=== PATIENT | female | born 1970 | race Caucasian/White ===

== ENCOUNTER 2016-10-17 14:12 | Observation (INO) | payer BC ==
--- OUTSIDE RECORDS SUMMARY | 2016-10-17 15:52 | XMS REPORT | Summary of Care ---
:1970 Author Organization [facility] Address [address] [place] [address] Care Team Providers Name Role Phone Physician, Primary Care Primary Care Physician Unavailable Encounter Date(s): 07/29/16 - 07/29/16 [facility] [place] [address] [place], [place] [address] Discharge Diagnosis: Diabetic neuropathy Discharge Diagnosis: Left leg pain Discharge Diagnosis: Lumbar spinal stenosis Discharge Diagnosis: Lumbar degenerative disc disease Discharge Disposition: 01 Discharged to Home or Self Care Attending Physician: Steve Vallejo NP Referring Physician: Irwin Woodall MD Vital Signs Most recent to oldest [Reference Range]: 1 Peripheral Pulse Rate [60-100 bpm] 76 bpm (07/29/16 9:51 AM) Blood Pressure [90-130/60-90 mmHg] 120/82mmHg (07/29/16 9:51 AM) Mean Arterial Pressure, Cuff 95 mmHg (07/29/16 9:51 AM) Most recent to oldest [Reference Range]: 1 Height/Length Measured 162 cm (07/29/16 9:51 AM) Weight Dosing 101.00 kg1 (07/29/16 10:05 AM) Weight Measured 101 kg (07/29/16 9:51 AM) BSA Measured 2.04 m2 (07/29/16 9:51 AM) Body Mass Index Measured 38.48 kg/m2 (07/29/16 9:51 AM) 1Result Comment: This result was because the dosing weight was either not entered or it is>30 days old. This result is based off: Weight Measured July 29, 2016 09:51:00 FEED ADVISER by Lamin [employer]ing [employer] Problem List Condition Effective Dates Status Health Status Informant Anxiety(Confirmed) Active Depression(Confirmed) Active Diabetic neuropathy(Confirmed) Active DM - Diabetes mellitus Type Active 2(Confirmed) Ectopic (Confirmed) Active GERD - Gastro-esophageal reflux Active disease(Confirmed) Hyperlipidemia(Confirmed) Active Hypertension(Confirmed) Active Lactose intolerance(Confirmed) Active Lumbago(Confirmed) Active Obesity(Confirmed) Active Proteinuria(Confirmed) Active Allergies, Adverse Reactions, Alerts Substance Reaction Severity Status exenatide GI upset Active gemfibrozil GI upset Active oxyCODONE Agitation Active Medications aspirin 81 mg oral tablet 1 tab(s), Oral, Daily, 0 Refill(s) Start Date: 10/30/13 Stop Date: 10/30/13 Status: CompletedBactrim DS 800 mg-160 mg oral tablet 1 tab(s), Oral, BID, X 6 days, # 12 tab(s), 0 Refill(s), Start Date: 05/07/15 14 :52:00 FEED ADVISER Start Date: 05/07/15 Stop Date: 05/13/15 Status: Completedclindamycin 300 mg oral capsule 1 cap(s), Oral, TID, X 14 days, # 42 cap(s), 0 Refill(s), Start Date: 03/28/16 11:15:00 CDT, Pharmacy: [place], [place] Start Date: 03/28/16 Stop Date: 04/07/16 Status: Completedclindamycin 300 mg oral capsule 1 cap(s), Oral, TID, # 21 cap(s), 0 Refill(s), Start Date: 04/07/16 14:19:04 CDT , [facility] [place] Start Date: 04/07/16 Stop Date: 04/14/16 Status: OrderedDME - Sling See Instructions, Diagnosis Code: S46.312A Length of Need:3 mo, # 1 EA, 0 Refill(s), 03/10/16 15:04:00 CDT, Supply Special Instructions: Diagnosis Code: S46.312A Length of Need:3 mo Start Date: 03/10/16 Status: Orderedfenofibrate 160 mg oral tablet 1 tab(s), Oral, Daily, 0 Refill(s) Start Date: 10/30/13 Stop Date: 10/30/13 Status: Completedgabapentin 300 mg oral capsule 3 cap(s), Oral, TID, 0 Refill(s) Start Date: 10/30/13 Stop Date: 03/23/16 Status: Completedglimepiride 2 mg oral tablet 1 tab(s), Oral, Daily, 0 Refill(s) Start Date: 10/30/13 Stop Date: 03/26/16 Status: Discontinuedglimepiride 4 mg oral tablet 1 tab(s), Oral, Daily, # 30 tab(s), 0 Refill(s), Start Date: 07/29/16 10:00:00 FEED ADVISER Start Date: 07/29/16 Status: OrderedHumaLOG 100 units/mL subcutaneous solution inject 10 units by subcutaneous route 3 times every day within 15 minutes before meals, 0 Refill(s) Special Instructions: inject 10 units by subcutaneous route 3 times every day within 15 minutes before meals Start Date: 10/30/13 Stop Date: 10/30/13 Status: CompletedhydroCHLOROthiazide 12.5 mg oral capsule 1 cap(s), Oral, Daily, # 30 cap(s), 0 Refill(s), Start Date: 03/26/16 10:58:00 CDT, Pharmacy: [place], [place] Start Date: 03/26/16 Stop Date: 04/25/16 Status: OrderedHYDROcodone-acetaminophen 5 mg-325 mg oral tablet 1-2 tab(s), Oral, q6hr interval, # 12 tab(s), 0 Refill(s), Start Date: 05/07/15 14:52:00 FEED ADVISER Start Date: 05/07/15 Stop Date: 05/08/15 Status: CompletedHYDROcodone-acetaminophen 5 mg-325 mg oral tablet 1 tab(s), Oral, q4hr, PRN for pain, 0 Refill(s) Start Date: 10/30/13 Stop Date: 03/23/16 Status: Completedinsulin isophane (NPH) 100 units/mL human recombinant subcutaneous suspension 15 units, Subcutaneous, BIDMEALS, # 10 mL, 0 Refill(s), Start Date: 03/26/16 10: 58:00 CDT Start Date: 03/26/16 Stop Date: 04/25/16 Status: Orderedinsulin needles (disposable) 29 x 11/01" insulin needles (disposable) 29 x 516", use as directed to inject insulin 5 times a day, 0 Refill(s) Special Instructions: use as directed to inject insulin 5 times a day Start Date: 10/30/13 Stop Date: 10/30/13 Status: CompletedInsulin Syringe 1/2 mL 29 X 5/16" Insulin Syringe 1/2 mL 29 X 5/16", use daily for insulin injection, or as directed, 0 Refill(s) Special Instructions: use daily for insulin injection, or as directed Start Date: 10/30/13 Stop Date: 10/30/13 Status: CompletedKeflex 500 mg oral capsule 1 cap(s), Oral, QID, # 56 cap(s), 0 Refill(s), Start Date: 03/25/16 17:45:00 CDT , Pharmacy: [place], [place] Start Date: 03/25/16 Stop Date: 04/08/16 Status: OrderedKeflex 500 mg oral capsule 1 cap(s), Oral, QID, # 40 cap(s), 0 Refill(s), Start Date: 03/10/16 15:02:00 CDT , Pharmacy: [place], [place] Start Date: 03/10/16 Stop Date: 03/23/16 Status: CompletedLantus Solostar Pen 100 units/mL subcutaneous solution inject 40 units by subcutaneous route 2 times every day, 0 Refill(s) Special Instructions: inject 40 units by subcutaneous route 2 times every day Start Date: 10/30/13 Stop Date: 10/30/13 Status: Completedlisinopril 2.5 mg oral tablet 1 tab(s), Oral, Daily, 0 Refill(s) Start Date: 10/30/13 Stop Date: 03/26/16 Status: Discontinuedlisinopril 20 mg oral tablet 1 tab(s), Oral, Daily, # 30 tab(s), 0 Refill(s), Start Date: 03/26/16 10:57:00 CDT, Pharmacy: [place], [place] Start Date: 03/26/16 Stop Date: 04/25/16 Status: Orderedlisinopril 20 mg oral tablet 1 tab(s), Oral, Daily, 0 Refill(s) Start Date: 10/30/13 Stop Date: 10/30/13 Status: CompletedmetFORMIN 1000 mg oral tablet 1 tab(s), Oral, BID, # 60 tab(s), 0 Refill(s), Start Date: 03/26/16 10:58:00 CDT , Pharmacy: [place], [place] Start Date: 03/26/16 Stop Date: 04/25/16 Status: OrderedmetFORMIN 1000 mg oral tablet 1 tab(s), Oral, BID, with morning and evening meals, 0 Refill(s) Special Instructions: with morning and evening meals Start Date: 10/30/13 Stop Date: 10/30/13 Status: CompletedmetFORMIN 500 mg oral tablet 1 tab(s), Oral, BID, 0 Refill(s) Start Date: 10/30/13 Stop Date: 03/26/16 Status: DiscontinuedNorco 5 mg-325 mg oral tablet See Instructions, tab(s) 1-2 tab(s) Oral q4-6hr prn pain, # 60 tab(s), 0 Refill( s), Start Date: 03/25/16 16:06:47 CDT, Pharmacy: [place], [place] Special Instructions: tab(s) 1-2 tab(s) Oral q4-6hr prn pain Start Date: 03/25/16 Status: OrderedNorco 5 mg-325 mg oral tablet See Instructions, tab(s) 1-2 tab(s) Oral q4-6hr prn pain, # 60 tab(s), 0 Refill( s), Start Date: 03/10/16 15:06:00 CDT, Pharmacy: [place], [place] Special Instructions: tab(s) 1-2 tab(s) Oral q4-6hr prn pain Start Date: 03/10/16 Stop Date: 03/25/16 Status: CompletedNovoLOG FlexPen 100 units/mL subcutaneous solution 15 units, Subcutaneous, TIDAC, 1 box=5 [id number] units, # 30 mL, 0 Refill(s), Start Date: 03/26/16 11:00:00 CDT Special Instructions: 1 box=5 [id number] units Start Date: 03/26/16 Stop Date: 04/25/16 Status: OrderedNPH insulin human recomb 100 unit/mL Susp, Sub-Q Inj NPH insulin human recomb 100 unit/mL Susp, Sub-Q Inj, inject 25 units by subcutaneous route twice daily, 0 Refill(s) Special Instructions: inject 25 units by subcutaneous route twice daily Start Date: 10/30/13 Stop Date: 10/30/13 Status: Completedomeprazole 20 mg oral delayed release capsule 1 cap(s), Oral, Daily, before a meal, 0 Refill(s) Special Instructions: before a meal Start Date: 10/30/13 Status: OrderedOne Touch Ultra Test Strips One Touch Ultra Test Strips, place 1 Strip by In Vitro route 3 times every day for fingersticks monitoring as directed, 0 Refill(s) Special Instructions: place 1 Strip by In Vitro route 3 times every day for fingersticks monitoring as directed Start Date: 10/30/13 Stop Date: 10/30/13 Status: CompletedPen Needle 31 X 5/16" Pen Needle 31 X 5/16", use 1 needle by Injection route 8 times a day as directed for insulin and byetta administration, 0 Refill(s) Special Instructions: use 1 needle by Injection route 8 times a day as directed for insulin and byetta administration Start Date: 10/30/13 Stop Date: 10/30/13 Status: Completedsimvastatin 40 mg oral tablet 1 tab(s), Oral, HS, 0 Refill(s) Start Date: 10/30/13 Stop Date: 10/30/13 Status: Completedsimvastatin 40 mg oral tablet 1 tab(s), Oral, HS, # 30 tab(s), 0 Refill(s), Start Date: 03/26/16 10:58:00 CDT , [facility] [place] Start Date: 03/26/16 Stop Date: 04/25/16 Status: OrderedtraMADol 50 mg oral tablet 1 tab(s), Oral, q8hr interval, 0 Refill(s) Start Date: 10/30/13 Stop Date: 03/23/16 Status: CompletedUnifine Pentips 29 gauge Needle Unifine Pentips 29 gauge Needle, use as directed to inject insulin 5 times daily , 0 Refill(s) Special Instructions: use as directed to inject insulin 5 times daily Start Date: 10/30/13 Stop Date: 10/30/13 Status: CompletedXanax 0.25 mg oral tablet 1 tab(s), Oral, HS, 0 Refill(s) Start Date: 10/30/13 Stop Date: 10/30/13 Status: Completed Results No data available for this section Immunizations No data available for this section Procedures Procedure Date Related Diagnosis Body Site Repair Tendon Bicep (Left, Arm L)1 03/25/16 Exploratory laparotomy2 Operative procedure on foot or toes Operative procedure on spine3 1auto-populated from documented surgical [id number] for ectopic [id number] [id number]-Ushroc Social History No data available for this section Assessment and Plan No data available for this section
[2016-10-17] MEDS ORDERED: ACETAMINOPHEN 325 MG TABLET PO PRN (16:09)
[2016-10-17 16:23] LABS: Hematocrit 36.8 % (37.0-47.0); Hemoglobin 11.9 gm/dL (12.5-16.0); Mean Cell Volume 92.5 fl (78-100); Mean Corpuscular Hemoglobin 29.9 pg (27-31); Mean Corpuscular Hgb Conc 32.3 g/dl (32-36); Mean Platelet Volume 11.1 fl (6.0-9.5); Neutrophil # 6.3 K/mm3 (1.3-6.0); Neutrophil % 72.1 % (42-75.0); Platelet Count 197 K/mm3 (150-450); Red Blood Count 3.98 M/mm3 (4.2-5.4); White Blood Count 8.7 K/mm3 (4.0-10.5)
[2016-10-17] MEDS ORDERED: ENOXAPARIN SODIUM 40 MG/0.4 ML SYRG SC SCH (16:30)
[2016-10-17 16:38] LABS: INR 0.96 INR (0.90-1.10); Partial Thrombolplastin Time 24.5 Seconds (24-32)
[2016-10-17 16:43] LABS: Troponin I Less than 0.017 ng/ml (0.00-0.10)
[2016-10-17 16:45] LABS: ALT 32 U/L (19-67); AST 15 U/L (0-48); Albumin * 3.2 gm/dl (3.4-5.0); Alkaline Phosphatase * 66 U/L (50-170); BNP * 70 pg/mL (5-150); BUN/Creatinine Ratio 16.3 (9.0-21.6); Bilirubin, Total 0.4 mg/dL (0.0-1.1); Blood Urea Nitrogen 24 mg/dL (3-23); Ca. Corrected For Albumin 9.8 mg/dL (8.4-10.2); Calcium * 9.5 mg/dL (7.9-10.9); Carbon Dioxide 24.3 mmol/L (24-32.6); Chloride 101 mmol/L (97-106); Glucose * 422 mg/dL (70-110); Potassium 4.3 mmol/L (3.4-4.6); Sodium 136 mmol/L (132-142); Total Protein 7.2 gm/dL (6.2-8.2)
[2016-10-17] MEDS ORDERED: SULINDAC 200 MG PO PRN (18:25)
[2016-10-17] MEDS ORDERED: traMADol HCL 50 MG TABLET PO PRN (18:25)
--- NOTE | 2016-10-17 18:37 | HP ---
Chief Complaint - Chief Complaint Date of Service: 10/17/16 Time of Service: 14:00 Chief Complaint: Right leg pain, redness, and sob with chest pain History of Present Illness: 2 days ago this 46 year old woman developed redness, pain, swelling, tenderness , and heat in her distal right lower leg. She has had problems with a chronic callus on her distal right great toe. In addition, she developed sob with slight chest pain on exertion 2 days ago, which didn't wake her at night. No fever chills or sweats. No light headedness or passing out. No diaphoresis. No radiation. Walking made the pain in her right lower leg worse. She does have diabetes. - Patient's Past Medical History Patient History - Medical: Chronic Pain, Diabetes Type 2 Patient History - Cardiac/Respiratory: Hypertension Patient History - Cancer: No Hx of Cancer LMP (Calendar): 10/18/87 - Family History Mother Family History - Medical: , Diabetes Type 2 Family History - Cancer: Lung Sister Family History - Medical: Family History - Cancer: Brain - Social History Living Situations: spouse Psych History: No pertinent hx Smoking Status: Never smoker Have you smoked in the past 12 months: No Do you dip or chew tobacco: No Patient requests Smoking Cessation Consult: No Initiate information on Smoking Cessation: No Alcohol Use: none Drug Use: none Review Of Systems (GEN) - Review of Systems Generalized/Overall Review: Present: No Symptoms Reported EENTM: Present: No Symptoms Reported Respiratory: Present: Shortness of Breath Cardiac: Present: Chest Pain, Edema Abdominal: Present: No Symptoms Reported Genitourinary: Present: No Symptoms Reported Musculoskeletal: Present: No Symptoms Reported Neurological: Present: No Symptoms Reported Skin: Present: Other - see HPI Endocrine: Present: No Symptoms Reported Misc: All systems neg except as marked Home Medications: HOME MEDICATIONS Aspirin [Aspirin EC] 81 mg PO DAILY 10/17/16 [Last Taken Unknown] Fenofibrate 160 mg PO DAILY 10/17/16 [Last Taken Unknown] Gabapentin 800 mg PO QID 10/17/16 [Last Taken Unknown] Glimepiride [Amaryl] 4 mg PO BID@0700,1700 10/17/16 [Last Taken Unknown] Lisinopril/Hydrochlorothiazide [Lisinopril-Hctz 20-12.5 mg Tab] 1 each PO DAILY 10/17/16 [Last Taken Unknown] Omeprazole 20 mg PO DAILY 10/17/16 [Last Taken Unknown] Pioglitazone HCl [Actos] 45 mg PO DAILY 10/17/16 [Last Taken Unknown] Simvastatin [Zocor] 40 mg PO HS 10/17/16 [Last Taken Unknown] Sulindac 200 mg PO BID PRN 10/17/16 [Last Taken Unknown] metFORMIN HCL [Glucophage] 1,000 mg PO BIDWM 10/17/16 [Last Taken Unknown] traMADol HCL [Ultram] 100 mg PO Q6H PRN 10/17/16 [Last Taken Unknown] Exam - Exam Vital Signs: Vital Signs - Last Taken 10/17/2016 01:43 PM 120/78 Sitting P-112 R- 16 T -36.4 W - 105.5 H - 165 BMI - 38.75 O2 SAT RA - 99 % Constitutional: Present: Alert, Oriented x3, Cooperative, Well developed, No distress, Obese ENT Exam: Present: normal ENT inspection, hearing grossly normal, pharynx normal , TMs normal Eye Exam: bilateral eye: normal inspection, PERRL, EOMI Neck: Present: normal inspection Back Exam: Present: normal inspection Respiratory: Present: lungs clear, no respiratory distress Cardiovascular/Chest: Present: regular rate, rhythm, no murmur Abdomen: Present: Normal bowel sounds, soft, nontender, nondistended, no rebound tenderness, no hepatospenomegaly, no masses, obese Extremity: Present: pedal edema, swelling, other - distal right lower leg and foot red and tender with chronic callous distal right great toe Lymphatic: Present: no adenopathy Neurologic: Present: alert, oriented x 3 Appearance: Present: appropriate appearance, neat, no memory impairment Eye contact: Present: cooperative, good eye contact, normal speech Thoughts: Present: normal thought pattern Diagnostic Studies: Abnormal Lab Results 10/17/16 10/17/16 Range/Units 16:19 16:19 RBC 3.98 L (4.2-5.4) M/mm3 Hgb 11.9 L (12.5-16.0) gm/dL Hct 36.8 L (37.0-47.0) % MPV 11.1 H (6.0-9.5) fl Immature Gran % (Auto) 0.60 H (0.001-0.429) % Immature Gran # (Auto) 0.05 H (0.000-0.0310) K/mm3 Lymphocytes % 17.7 L (20-51) % Neutrophils # 6.3 H (1.3-6.0) K/mm3 Anion Gap 15.0 H (6.8-13.8) mmol/L BUN 24 H (3-23) mg/dL Creatinine 1.47 H D (0.4-1.4) mg/dL Est GFR (Non-Af Amer) 40 L D (60-130) mL/min Random Glucose 422 H (70-110) mg/dL Albumin 3.2 L (3.4-5.0) gm/dl Laboratory Results WBC 8.7 K/mm3 (4.0-10.5) 10/17/16 16:19 RBC 3.98 M/mm3 (4.2-5.4) L 10/17/16 16:19 Hgb 11.9 gm/dL (12.5-16.0) L 10/17/16 16:19 Hct 36.8 % (37.0-47.0) L 10/17/16 16:19 MCV 92.5 fl (78-100) 10/17/16 16:19 MCH 29.9 pg (27-31) 10/17/16 16:19 MCHC 32.3 g/dl (32-36) 10/17/16 16:19 RDW 14.0 % (11.5-14.0) 10/17/16 16:19 Plt Count 197 K/mm3 (150-450) 10/17/16 16:19 MPV 11.1 fl (6.0-9.5) H 10/17/16 16:19 Immature Gran % (Auto) 0.60 % (0.001-0.429) H 10/17/16 16:19 Immature Gran # (Auto) 0.05 K/mm3 (0.000-0.0310) H 10/17/16 16:19 Neutrophils % 72.1 % (42-75.0) 10/17/16 16:19 Lymphocytes % 17.7 % (20-51) L 10/17/16 16:19 Monocytes % 7.7 % (0.0-9) 10/17/16 16:19 Eosinophils % 1.8 % (0.0-3.0) 10/17/16 16:19 Basophils % 0.1 % (0.0-1.0) 10/17/16 16:19 Nucleated RBC % 0.0 k/mm3 (0-1) 10/17/16 16:19 Neutrophils # 6.3 K/mm3 (1.3-6.0) H 10/17/16 16:19 Lymphocytes # 1.5 k/mm3 (1.5-3.5) 10/17/16 16:19 Monocytes # 0.7 k/mm3 (0.0-1.0) 10/17/16 16:19 Eosinophils # 0.2 k/mm3 (0.0-0.7) 10/17/16 16:19 Absolute Basophils 0.0 k/mm3 (0.0-0.1) 10/17/16 16:19 PT 10.0 Seconds (9.4-11.4) 10/17/16 16:19 INR (Anticoag Therapy) 0.96 INR (0.90-1.10) 10/17/16 16:19 PTT ([place]) 24.5 Seconds (24-32) 10/17/16 16:19 Sodium 136 mmol/L (132-142) 10/17/16 16:19 Plasma Sodium 141 mmol/L (130-142) 10/17/16 16:19 Potassium 4.3 mmol/L (3.4-4.6) 10/17/16 16:19 Chloride 101 mmol/L (97-106) 10/17/16 16:19 Carbon Dioxide 24.3 mmol/L (24-32.6) 10/17/16 16:19 Anion Gap 15.0 mmol/L (6.8-13.8) H 10/17/16 16:19 BUN 24 mg/dL (3-23) H 10/17/16 16:19 Creatinine 1.47 mg/dL (0.4-1.4) H D 10/17/16 16:19 Est GFR (Non-Af Amer) 40 mL/min (60-130) L D 10/17/16 16:19 BUN/Creatinine Ratio 16.3 (9.0-21.6) 10/17/16 16:19 Random Glucose 422 mg/dL (70-110) H 10/17/16 16:19 Calcium 9.5 mg/dL (7.9-10.9) 10/17/16 16:19 Calcium Adj for Albumin 9.8 mg/dL (8.4-10.2) 10/17/16 16:19 Total Bilirubin 0.4 mg/dL (0.0-1.1) 10/17/16 16:19 AST 15 U/L (0-48) 10/17/16 16:19 ALT 32 U/L (19-67) 10/17/16 16:19 Alkaline Phosphatase 66 U/L (50-170) 10/17/16 16:19 Troponin I Less than 0.017 ng/ml (0.00-0.10) 10/17/16 16:19 B-Natriuretic Peptide 70 pg/mL (5-150) 10/17/16 16:19 Total Protein 7.2 gm/dL (6.2-8.2) 10/17/16 16:19 Albumin 3.2 gm/dl (3.4-5.0) L 10/17/16 16:19 Assessment/Plan - Narrative Narrative: Labs including cultures. CXR. Ultrasound leg. Chest PE CT. IV antibiotics. Troponin. EKG. Other studies and treatment pending results and course. Estimate hospital stay of at least one midnight. - Assessment/Plan (1) Cellulitis Problem: Suspected Qualifiers: Site of cellulitis: extremity Site of cellulitis of extremity: lower extremity Laterality: right Qualified Code(s): L03.115 - Cellulitis of right lower limb (2) Phlebitis Problem: Suspected (3) Pulmonary embolism Problem: Suspected Qualifiers: Chronicity: unspecified Acute cor pulmonale presence: without acute cor pulmonale (4) Chest pain Problem: Acute Qualifiers: Chest pain type: chest pain due to myocardial ischemia Ischemic chest pain type: unstable angina pectoris Qualified Code(s): I20.0 - Unstable angina (5) Diabetes mellitus Problem: Chronic Qualifiers: Diabetes mellitus type: type 2
[2016-10-17] MEDS: NORMAL SALINE 1,000 ML IV PRN (19:48)
[2016-10-17] MEDS: GABAPENTIN 400 MG CAPSULE PO SCH (20:33)
[2016-10-17] MEDS ORDERED: SIMVASTATIN 40 MG TABLET PO SCH (21:00)
[2016-10-18] MEDS: NORMAL SALINE 1,000 ML IV PRN (03:55)
[2016-10-18 06:14] LABS: Anion Gap 17.2 mmol/L (6.8-13.8); BUN/Creatinine Ratio 21.2 (9.0-21.6); Calcium * 9.2 mg/dL (7.9-10.9); Estimated Creat Clear 57.1; Potassium 4.2 mmol/L (3.4-4.6)
[2016-10-18] MEDS ORDERED: PANTOPRAZOLE SODIUM 20 MG TABLET.DR PO SCH (07:00)
[2016-10-18] MEDS ORDERED: GLIMEPIRIDE 4 MG TABLET PO SCH (07:00)
[2016-10-18 07:32] VITALS: BP 110/67
--- NOTE | 2016-10-18 07:42 | DS ---
(1) Cellulitis Problem: Acute Qualifiers: Site of cellulitis: extremity Site of cellulitis of extremity: lower extremity Laterality: right Qualified Code(s): L03.115 - Cellulitis of right lower limb (2) Phlebitis Problem: Ruled-out (3) Pulmonary embolism Problem: Ruled-out Qualifiers: Chronicity: unspecified Acute cor pulmonale presence: without acute cor pulmonale (4) Chest pain Problem: Ruled-out Qualifiers: Chest pain type: chest pain due to myocardial ischemia Ischemic chest pain type: unstable angina pectoris Qualified Code(s): I20.0 - Unstable angina (5) Diabetes mellitus Problem: Chronic Qualifiers: Diabetes mellitus type: type 2 (6) Normochromic normocytic anemia Problem: Chronic (7) Hypernatremia Problem: Acute (8) Acute renal failure superimposed on stage 2 chronic kidney disease Problem: Acute Description of Stay: Following admission, cultures were obtained and Rocephin was started. Right lower leg looks better this morning. Ultrasound ruled out DVT of right leg. CT angiogram ruled out PE. CXR and EKG were non acute. Troponin was normal. Patient feels well. She will be sent home with outpatient antibiotics and followup. Procedures Performed: none Discharge Disposition: Home self care Disposition: Home self-care Condition: Good Discharge Activity: Activity as tolerated - rest with leg elevated Discharge Diet: Consistent carbs, Low salt Referrals: Irwin Oliveira MD [Primary Care Provider] - Problem Oriented Discharge Instructions to Patient/Family: Cellulitis, Adult, [id number], Form - Excuse from Work, School, or Physical Activity Additional Patient Instructions (free text): Rest with leg elevated off work till October 25. See Dr. Woodall October 24. CBC and BMP blood tests October 24. Prescriptions (Any new or edited meds): Ammonium Lactate [Karmen-Hydrolac] 1 appl TP BID #1 bottle Cefuroxime Axetil [Cefuroxime] 500 mg PO BID #30 tablet Hydrophilic Ointment [Aquaphilic Ointment] 1 appl TP BID #1 jar Complete Home Medications List: Complete Home Medication List: Aspirin [Aspirin EC] 81 mg PO DAILY 10/17/16 Fenofibrate 160 mg PO DAILY 10/17/16 Gabapentin 800 mg PO QID 10/17/16 Glimepiride [Amaryl] 4 mg PO BID@0700,1700 10/17/16 Lisinopril/Hydrochlorothiazide [Lisinopril-Hctz 20-12.5 mg Tab] 1 each PO DAILY 10/17/16 Omeprazole 20 mg PO DAILY 10/17/16 Pioglitazone HCl [Actos] 45 mg PO DAILY 10/17/16 Simvastatin [Zocor] 40 mg PO HS 10/17/16 Sulindac 200 mg PO BID PRN 10/17/16 metFORMIN HCL [Glucophage] 1,000 mg PO BIDWM 10/17/16 traMADol HCL [Ultram] 100 mg PO Q6H PRN 10/17/16 Acetaminophen [Tylenol] 650 mg PO QID PRN #0 tablet 10/18/16 Ammonium Lactate [Karmen-Hydrolac] 1 appl TP BID #1 bottle 10/18/16 Cefuroxime Axetil [Cefuroxime] 500 mg PO BID #30 tablet 10/18/16 Hydrophilic Ointment [Aquaphilic Ointment] 1 appl TP BID #1 jar 10/18/16
[2016-10-18] MEDS: GABAPENTIN 400 MG CAPSULE PO SCH (08:39)
[2016-10-18] MEDS ORDERED: ASPIRIN 81 MG TABLET.DR PO SCH (09:00)
[2016-10-18] MEDS ORDERED: FENOFIBRATE,MICRONIZED 134 MG CAPSULE PO SCH (09:00)
[2016-10-18] MEDS ORDERED: LISINOPRIL 20 MG TABLET PO SCH (09:00)
[2016-10-18] MEDS ORDERED: HYDROCHLOROTHIAZIDE 12.5 MG CAPSULE PO SCH (09:00)
[2016-10-18] MEDS ORDERED: PIOGLITAZONE HCL 15 MG TABLET PO SCH (09:00)
== END 2016-10-18 09:30 | disposition home or self-care (01) ==
LOC: MS 15:48 → INTOOBSV 15:48
PROVIDERS: ADMIT Allergy & Immunology; ATTEND Allergy & Immunology
DX: L03.115 Cellulitis of right lower limb (principal); B95.1 Streptococcus, group B, as the cause of diseases classified elsewhere; E11.628 Type 2 diabetes mellitus with other skin complications; D64.9 Anemia, unspecified; E87.0 Hyperosmolality and hypernatremia; I12.9 Hypertensive chronic kidney disease with stage 1 through stage 4 chronic kidney disease, or unspecified chronic kidney disease; N17.9 Acute kidney failure, unspecified; N18.2 Chronic kidney disease, stage 2 (mild)
CPT/HCPCS: 36415; 71020; 71275; 80048; 80053; 83880; 84484; 85025; 85610; 85730; 87040; 87070; 87077; 87186; 93005; 93971; 96365; 96372; G0378; G0379